=== PATIENT | male | born 1940 | race Caucasian/White ===

== ENCOUNTER 2021-10-11 06:57 | Outpatient (REF) | payer MEDICARE, OTHER, SELFPAY ==
--- NOTE | ~2021-10-11 | XR_ITS ---
EXAMINATION: XR HAND, RIGHT CLINICAL INFORMATION: Pain COMPARISON: Previous right wrist x-ray July 2018 TECHNIQUE: PA, lateral, and oblique views of the right hand. FINDINGS: Bone alignment is normal. No fracture or dislocation is seen. There is mild arthritis at the IP joints and first SKILLED NURSING joint with small osteophytes. There are small cysts seen in the second and third metacarpal heads. There is mild joint space narrowing at the third MCP joint. Soft tissues are unremarkable. 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 Question inflammatory arthritis of the second and third MCP joints.
== END 2021-10-11 06:58 | disposition home or self-care (01) ==
LOC: HO.HOSX 06:57
PROVIDERS: Visit Provider Physician Assistant
DX: M65.4 Radial styloid tenosynovitis [de Quervain] (principal); M79.641 Pain in right hand
CPT/HCPCS: 73130; 99202; J1100